=== PATIENT | female | born 1950 | race Caucasian/White ===

== ENCOUNTER → 2016-07-28 | Outpatient (CLI) | payer BC ==
[2016-07-28 08:14] LABS: Basophils # (A) 0.1 k/uL (0-0.2); Basophils % (A) 2 %; CH 28.6; CHCM 31.6; Eosinophils # (A) 0.1 k/uL (0-0.7); Eosinophils % (A) 2 %; HCT 44.2 % (34.0-46.0); HDW 2.25; Luc # (Auto) 0.13; Luc % (Auto) 2; Lymphocytes # (A) 1.5 k/uL (1.0-4.8); Lymphocytes % (A) 25 %; MCH 28.9 pg (25.0-35.0); MCHC 31.7 g/dL (31.0-37.0); Mean Platelet Volume 8.2; Monocytes # (A) 0.2 k/uL (0-1.0); Monocytes % (A) 4 %; Neutrophils # (A) 4.1 k/uL (1.3-7.7); Neutrophils % (A) 66 %; RBC 4.86 m/uL (3.80-5.40); RDW 13.8 % (11.5-15.5); WBC 6.3 k/uL (3.8-10.6); WBC (Perox) 6.56
[2016-07-28 08:16] LABS: Appearance,Urine Clear (Clear); Bilirubin,Urine Negative (Negative); Glucose,Urine (UA) Negative (Negative); Ketones,Urine Negative (Negative); Leukocyte Esterase,Urine Negative (Negative); Nitrite,Urine Negative (Negative); PH, Urine 6.5 (5.0-8.0); Protein,Urine Negative (Negative); Specific Gravity,Urine 1.016 (1.001-1.035); UA Billing (MACRO vs. MICRO) CHEM; Urobilinogen,Urine <2.0 mg/dL (<2.0)
[2016-07-28 11:17] LABS: Hemoglobin A1C 5.8 % (4.2-6.1)
[2016-07-28 11:43] LABS: ALT 34 U/L (9-52); AST 21 U/L (14-36); Alkaline Phosphatase 61 U/L (38-126); Anion Gap 8 mmol/L; Blood Urea Nitrogen 26 mg/dL (7-17); Calcium 9.3 mg/dL (8.4-10.2); Carbon Dioxide 28 mmol/L (22-30); Chloride 107 mmol/L (98-107); Cholesterol 161 mg/dL (<200); Creatine Kinase 43 U/L (30-135); Glucose 95 mg/dL (74-99); HDL Cholesterol 64 mg/dL (40-60); Iron 68 ug/dL (37-170); Non-African American GFR(MDRD) >60 (>60 ml/min/1.73 sqM); Sodium 143 mmol/L (137-145); Total Bilirubin 0.3 mg/dL (0.2-1.3); Total Protein 6.4 g/dL (6.3-8.2); Triglycerides 50 mg/dL (<150); Uric Acid 4.1 mg/dL (3.7-7.4)
[2016-07-28 11:53] LABS: % Iron Saturation 24.5 % (20-50); Total Iron Binding Capacity 278 ug/dL (265-497)
== END | disposition home or self-care (01) ==
LOC: LABWHC1 07:27
PROVIDERS: ATTEND Internal Medicine
DX: E55.9 Vitamin D deficiency, unspecified (principal); K21.0 Gastro-esophageal reflux disease with esophagitis; M47.812 Spondylosis without myelopathy or radiculopathy, cervical region; H04.123 Dry eye syndrome of bilateral lacrimal glands; G43.809 Other migraine, not intractable, without status migrainosus
CPT/HCPCS: 36415; 80053; 80061; 81003; 82306; 82550; 82728; 83036; 83540; 83550; 84443; 84550; 85025

== ENCOUNTER → 2017-02-07 | Outpatient (CLI) | payer BC ==
--- NOTE | 2017-02-07 17:42 | BD ---
EXAMINATION TYPE: MG DEXA axial skeleton. DATE OF EXAM: 02/07/2017 COMPARISON: 02.01.2015 CLINICAL HISTORY: 66-year-old female....ISD-10 CODE: M85.9 DISORDER OF BONE Height: 62 Weight: 214 FRAX RISK QUESTIONS: Alcohol (3 or more units per day): NO Family History (Parent hip fracture): NO FX Glucocorticoids (More than 3mos): NO (Ex: prednisone, prednisolone, methylprednisolone, dexamethasone, and hydrocortisone). History of Fracture in Adulthood: YES Secondary Osteoporosis: NO 1. Type 1 Diabetes: NO 2. Hyperthyroidism: NO 3. Menopause before 45: NO 4. Malnutrition: NO 5. Chronic liver disease: NO Rheumatoid Arthritis: NO Current Tobacco Use: NO RISK FACTORS HISTORY OF: RT FOOT > 50 YRS OLD Family History of Osteoporosis: YES, HER SISTER Active: YES Diet low in dairy products/other sources of calcium: NO Postmenopausal woman: HYST. AT AGE 48 Take estrogen and/or progesterone medications: YES, VAG. CREAM 3XWEEKLY How long: SINCE AGE 48 Lost more than 2 inches in height since high school: 2 INCHES EXACTLY Hyperparathyroidism: NO Adrenal Insufficiency: NO MEDICATIONS: Additional Medications: CALCIUM AND VIT D, REFLUX MEDS, Additional History: NONE TO NOTE EXAM MEASUREMENTS: Bone mineral densitometry was performed using the [employer] System. Bone mineral density as measured about the Lumbar spine is: ----- L1-L4(G/cm2): 1.156 T Score Values are as follows: ----- L1: -0.9 ----- L2: 0.1 ----- L3: 0.2 ----- L4: -0.5 ----- L1-L4: -0.2 Bone mineral density has: Decreased -1.2% since study of: 02.01.2015 Bone mineral density about the R hip (g/cm2): 1.000 Bone mineral density about the L hip (g/cm2): 0.994 T Score values are as follows: -----R Neck: -0.3 -----L Neck: -0.4 -----R Total: -0.1 -----L Total: -0.1 Bone mineral density has: Increased 0.1% since study of: 02.01.2015 FRAX%'S: THERE IS A 10.5% CHANCE FOR A MAJOR OSTEOPOROTIC FX AND A 0.4% OF HIP FX....PROBABILITY O F FX IN 10 YRS TIME IMPRESSION: Normal (Values between +1 and -1 indicate normal bone mass). Consider repeating this study in 5 year s or sooner if there is some new clinical indication. NOTE: T-SCORE=SD OF THE YOUNG ADULT MEAN.
--- NOTE | 2017-02-08 11:37 | MM ---
Reason for exam: screening (asymptomatic). Last mammogram was performed 11 months ago. History: Patient is postmenopausal. Family history of breast cancer in maternal aunt, breast cancer in maternal cousin at age 40, and breast cancer in mother at age 60. Benign excisional biopsy of the left breast, 1989. Taking estrogen for 16 years beginning at age 47. Physical Findings: A clinical breast exam by your physician is recommended on an annual basis and results should be correlated with mammographic findings. MG Screening Mammo w CAD Bilateral CC and MLO view(s) were taken. Prior study comparison: March 09, 2016, bilateral MG screening mammo w CAD. February 01, 2015, bilateral MG screening mammo w CAD. The breast tissue is heterogeneously dense. This may lower the sensitivity of mammography. Waxing and waning cysts. No significant changes when compared with prior studies. ASSESSMENT: Benign, BI-RAD 2 RECOMMENDATION: Routine screening mammogram of both breasts in 1 year.
== END | disposition home or self-care (01) ==
LOC: RADMAMWWP 14:50
PROVIDERS: ATTEND Internal Medicine
DX: Z12.31 Encounter for screening mammogram for malignant neoplasm of breast (principal); M85.9 Disorder of bone density and structure, unspecified
CPT/HCPCS: 77080; G0202

== ENCOUNTER → 2018-04-01 | Outpatient (CLI) | payer OTHER ==
--- NOTE | 2018-04-05 09:41 | MM ---
Reason for exam: screening (asymptomatic). Last mammogram was performed 1 year and 2 months ago. History: Patient is postmenopausal. Family history of breast cancer in mother at age 60, breast cancer in cousin at age 40, and breast cancer in aunt. Benign excisional biopsy of the left breast, 1989. Taking estrogen for 16 years beginning at age 47. MG Screening Mammo w CAD Bilateral CC and MLO view(s) were taken. Prior study comparison: February 07, 2017, bilateral MG screening mammo w CAD. March 09, 2016, bilateral MG screening mammo w CAD. The breast tissue is heterogeneously dense. This may lower the sensitivity of mammography. Chronic nodularity bilaterally. No significant changes when compared with prior studies. ASSESSMENT: Benign, BI-RAD 2 RECOMMENDATION: Routine screening mammogram of both breasts in 1 year.
== END ==
LOC: RADMAMWWP 16:32
PROVIDERS: ATTEND Internal Medicine
DX: Z12.31 Encounter for screening mammogram for malignant neoplasm of breast (principal)
CPT/HCPCS: 77067

== ENCOUNTER → 2019-07-27 | Outpatient (CLI) | payer MEDICARE, BC ==
--- NOTE | 2019-07-27 08:15 | US ---
EXAMINATION TYPE: US abdomen complete DATE OF EXAM: 07/27/2019 COMPARISON: NONE CLINICAL HISTORY: R10.9 Abdominal Pain. RLQ pain. EXAM MEASUREMENTS: Liver Length: 13.2 cm Gallbladder Wall: Surgically absent cm CBD: .6 cm Spleen: 8.3 cm Right Kidney: 10.3 x 4.6 x 3.8 cm Left Kidney: 10.5 x 4.5 x 4.7 cm Pancreas: wnl Liver: wnl Gallbladder: Surgically absent Evidence for sonographic Jerome's sign: No CBD: wnl Spleen: wnl Right Kidney: wnl Left Kidney: wnl Upper IVC: wnl Abd Aorta: wnl The liver is homogenous. The intrahepatic portion of the IVC and proximal abdominal aorta are within normal limits. Common bile duct is unremarkable. The visualized portions of the pancreas are homog enous. The spleen is unremarkable. Kidneys are symmetric and free of hydronephrosis. No renal lesi ons are seen. IMPRESSION: No distinct abnormality appreciated at this time.
== END | disposition home or self-care (01) ==
LOC: RADUSWWP 07:24
PROVIDERS: ATTEND Internal Medicine Geriatric Medicine
DX: R10.9 Unspecified abdominal pain (principal)
CPT/HCPCS: 76700

== ENCOUNTER → 2019-08-06 | Outpatient (CLI) | payer MEDICARE, BC ==
--- NOTE | 2019-08-11 08:52 | MM ---
Reason for exam: screening (asymptomatic). Last mammogram was performed 1 year and 4 months ago. History: Patient is postmenopausal. Family history of breast cancer in mother at age 60, breast cancer in cousin at age 40, breast cancer in sister at age 65, and breast cancer in aunt. Benign excisional biopsy of the left breast, 1989. Taking estrogen for 16 years beginning at age 47. Physical Findings: A clinical breast exam by your physician is recommended on an annual basis and results should be correlated with mammographic findings. MG 3D Screening Mammo W/Cad Bilateral CC and MLO view(s) were taken. Prior study comparison: April 01, 2018, bilateral MG screening mammo w CAD. February 07, 2017, bilateral MG screening mammo w CAD. The breast tissue is heterogeneously dense. This may lower the sensitivity of mammography. There is chronic nodularity bilaterally. No significant changes when compared with prior studies. ASSESSMENT: Benign, BI-RAD 2 RECOMMENDATION: Routine screening mammogram of both breasts in 1 year.
== END | disposition home or self-care (01) ==
LOC: RADMAMWWP 12:23
PROVIDERS: ATTEND Internal Medicine Geriatric Medicine
DX: Z12.31 Encounter for screening mammogram for malignant neoplasm of breast (principal)
CPT/HCPCS: 77063; 77067

== ENCOUNTER → 2019-08-06 | Outpatient (CLI) | payer MEDICARE, BC | END | disposition home or self-care (01) | LOC: LABWHC1 12:50 | PROVIDERS: ATTEND Ophthalmology | DX: M31.6 Other giant cell arteritis (principal) | CPT/HCPCS: 36415; 85652; 86140 ==

== ENCOUNTER → 2020-08-24 | Outpatient (CLI) | payer MEDICARE ==
--- NOTE | 2020-08-26 11:05 | MM ---
Reason for exam: screening (asymptomatic). Last mammogram was performed 1 year and 1 month ago. History: Patient is postmenopausal. Family history of breast cancer in mother at age 60, breast cancer in cousin at age 40, breast cancer in sister at age 65, and breast cancer in aunt. Benign excisional biopsy of the left breast, 1989. Taking estrogen for 16 years beginning at age 47. Physical Findings: A clinical breast exam by your physician is recommended on an annual basis and results should be correlated with mammographic findings. MG 3D Screening Mammo W/Cad Bilateral CC and MLO view(s) were taken. Prior study comparison: August 06, 2019, bilateral MG 3d screening mammo w/cad. April 01, 2018, bilateral MG screening mammo w CAD. The breast tissue is heterogeneously dense. This may lower the sensitivity of mammography. ASSESSMENT: Negative, BI-RAD 1 RECOMMENDATION: Routine screening mammogram of both breasts in 1 year.
== END | disposition home or self-care (01) ==
LOC: RADMAMWWP 07:51
PROVIDERS: ATTEND Internal Medicine Geriatric Medicine
DX: Z12.31 Encounter for screening mammogram for malignant neoplasm of breast (principal); Z78.0 Asymptomatic menopausal state; Z80.3 Family history of malignant neoplasm of breast
CPT/HCPCS: 77063; 77067

== ENCOUNTER → 2022-03-27 | Outpatient (CLI) | payer MEDICARE ==
--- NOTE | 2022-03-27 15:58 | BD ---
EXAMINATION TYPE: Axial Bone Density DATE OF EXAM: 03/27/2022 COMPARISON: 2016 CLINICAL HISTORY: 71 years year old Female. ICD-10 CODE: M81.0 age related osteopor Height: 5'2 1/2 Weight: 222 FRAX RISK QUESTIONS: Secondary Osteoporosis: RISK FACTORS HISTORY OF: Postmenopausal woman: y Lost more than 2 inches in height since high school: y MEDICATIONS: Additional Medications: gerd, 5 days steroid Additional History: EXAM MEASUREMENTS: Bone mineral densitometry was performed using the [employer] System. Bone mineral density as measured about the Lumbar spine is: ----- L1-L4(G/cm2): 1.142 T Score Values are as follows: ----- L1: -0.9 ----- L2: -0.1 ----- L3: 0.2 ----- L4: -0.6 ----- L1-L4: -0.3 Bone mineral density has: Decreased -0.7% since study of: 02/07/2017 Bone mineral density about the R hip (g/cm2): 1.067 Bone mineral density about the L hip (g/cm2): 1.031 T Score values are as follows: -----R Neck: 0.2 -----L Neck: -0.1 -----R Total: 0.3 -----L Total: 0.3 Bone mineral density has: Increased 5.3% since study of: 02/07/2017 FRAX%s: The graph provided illustrates a 10.2% chance for a major osteoporotic fx and a 0.4% chance f or the hips probability for fx in 10 years time. IMPRESSION: Normal (Values between +1 and -1 indicate normal bone mass). Consider repeating this study in 5 year s or sooner if there is some new clinical indication. NOTE: T-SCORE=SD OF THE YOUNG ADULT MEAN.
--- NOTE | 2022-03-28 21:38 | MM ---
Reason for Exam: Screening (asymptomatic). Last mammogram was performed 1 year(s) and 7 month(s) ago. Patient History: Menarche at age 14. First Full-Term at age 27. Left ovary removed at age 47. Right ovary removed at age 47. Hysterectomy at age 47. Postmenopausal. Patient has history of breast feeding. Currently using Estrogen, beginning at age 47 for 16 years. 1989, Benign Excisional Biopsy on the left side. Maternal cousin had breast cancer, age 40. Maternal aunt had breast cancer. Sister had breast cancer, age 65. Mother had breast cancer, age 60. Risk Values: Mily 5 year model risk: 7.0%. NCI Lifetime model risk: 20.1%. Prior Study Comparison: 04/01/2018 Bilateral Screening Mammogram, [facility]. 08/06/2019 Bilateral Screening Mammogram, [facility]. 08/24/2020 Bilateral Screening Mammogram, [facility]. Tissue Density: The breast tissue is heterogeneously dense. This may lower the sensitivity of mammography. Findings: Analyzed By CAD. Both areas obscured distortion throughout the left cc view at a middle depth. However, the appearance on the MLO view is similar. Possible superimposition shadow but further evaluation is recommended. Chronic nodularity on the right. Overall Assessment: Incomplete: need additional imaging evaluation, BI-RAD 0 Management: Special View Mammogram of the left breast. Diagnostic Breast Ultrasound of the left breast. Additional views including spot 3-D CC, 3-D CC rolled medial, 3-D CC rolled lateral, and 3-D lateral views. Whole left breast ultrasound. Note the patient's high five-year risk and elevated lifetime risk. Patient may qualify for screening MRI. [facility] will attempt to contact patient to return for supplemental views and ultrasound if indicated. Electronically signed and approved by: Sujit Bain M.D. Radiologist
== END | disposition home or self-care (01) ==
LOC: RADMAMWWP 12:44
PROVIDERS: ATTEND Internal Medicine Geriatric Medicine
DX: Z12.31 Encounter for screening mammogram for malignant neoplasm of breast (principal); M81.0 Age-related osteoporosis without current pathological fracture; Z78.0 Asymptomatic menopausal state; Z80.3 Family history of malignant neoplasm of breast
CPT/HCPCS: 77063; 77067; 77080

== ENCOUNTER → 2022-03-30 | Outpatient (CLI) | payer MEDICARE ==
--- NOTE | 2022-03-30 08:04 | MM ---
Reason for Exam: Additional evaluation requested from abnormal screening. Last screening mammogram was performed less than 1 month ago. Patient History: Menarche at age 14. First Full-Term at age 27. Left ovary removed at age 47. Right ovary removed at age 47. Hysterectomy at age 47. Postmenopausal. Patient has history of breast feeding. Currently using Estrogen, beginning at age 47 for 16 years. 1989, Benign Excisional Biopsy on the left side. Maternal cousin had breast cancer, age 40. Maternal aunt had breast cancer. Sister had breast cancer, age 65. Mother had breast cancer, age 60. Risk Values: Mily 5 year model risk: 7.0%. NCI Lifetime model risk: 20.1%. Prior Study Comparison: 08/06/2019 Bilateral Screening Mammogram, [facility]. 08/24/2020 Bilateral Screening Mammogram, [facility]. 03/27/2022 Bilateral MG 3D screening mammo w/cad, [facility]. Tissue Density: Left: The breast tissue is heterogeneously dense. This may lower the sensitivity of mammography. Findings: Analyzed By CAD. The 2 asymmetries demonstrated within the lateral and central left breast at middle depth become less apparent with compression. There is a persistent mass demonstrated within the inner left breast at middle depth measuring 5 mm. Additional suggestive mass within the lateral left breast measuring 6 mm middle depth. No suspicious calcifications. Overall Assessment: Incomplete: need additional imaging evaluation, BI-RAD 0 Management: Diagnostic Breast Ultrasound of the left breast. A clinical breast exam by your physician is recommended on an annual basis and results should be correlated with mammographic findings. This exam should not preclude additional follow-up of suspicious palpable abnormalities. Results were given to the patient verbally at the time of exam. Electronically signed and approved by: Sloan Ortiz D.O.
--- NOTE | 2022-03-30 08:32 | USB ---
Reason for Exam: Additional evaluation requested from abnormal screening. Patient History: Menarche at age 14. First Full-Term at age 27. Left ovary removed at age 47. Right ovary removed at age 47. Hysterectomy at age 47. Postmenopausal. Patient has history of breast feeding. Currently using Estrogen, beginning at age 47 for 16 years. 1989, Benign Excisional Biopsy on the left side. Maternal cousin had breast cancer, age 40. Maternal aunt had breast cancer. Sister had breast cancer, age 65. Mother had breast cancer, age 60. Risk Values: Mily 5 year model risk: 7.0%. NCI Lifetime model risk: 20.1%. Prior Study Comparison: 08/06/2019 Bilateral Screening Mammogram, [facility]. 08/24/2020 Bilateral Screening Mammogram, [facility]. 03/27/2022 Bilateral MG 3D screening mammo w/cad, [facility]. Findings: The whole breast of the left breast, the axilla of the left breast and the retroareolar of the left breast were scanned. A complete US of all four quadrants of the left breast and retro-areolar region were reviewed. Several simple cysts are demonstrated within the left breast with example including at 12:00 5 cm from the nipple measuring 4 x 3 x 5 mm. Another example a 8:00 2 cm from the nipple measuring 5 x 3 x 5 mm. No solid mass is identified. Overall Assessment: Benign, BI-RAD 2 Management: Screening Mammogram of both breasts in 1 year. A clinical breast exam by your physician is recommended on an annual basis and results should be correlated with mammographic findings. This exam should not preclude additional follow-up of suspicious palpable abnormalities. Results were given to the patient verbally at the time of exam. Electronically signed and approved by: Sloan Ortiz D.O.
== END | disposition home or self-care (01) ==
LOC: RADMAMWWP 07:27
PROVIDERS: ATTEND Internal Medicine Geriatric Medicine
DX: R92.8 Other abnormal and inconclusive findings on diagnostic imaging of breast (principal); Z78.0 Asymptomatic menopausal state; Z80.3 Family history of malignant neoplasm of breast
CPT/HCPCS: 77065; 76641; G0279; 77061

== ENCOUNTER → 2022-07-04 | Outpatient (CLI) | payer MEDICARE ==
--- NOTE | 2022-07-05 09:53 | MR ---
EXAMINATION TYPE: MR brain and iac wo/w con DATE OF EXAM: 07/04/2022 COMPARISON: Outside [facility] CT 11/11/2020 and MRI 12/02/2020 HISTORY: 71-year-old female H93.3X9, H93.19, H91.90, H90.5 HEARING LOSS. Left ear ringing, head pain and right ear pain. TECHNIQUE: Multiplanar, multisequence images of the brain and brainstem were acquired before and aft er administration of 10 ml IV Gadavist. Diffusion weighted imaging was performed. Additional coned- down sequences through the internal auditory canals and posterior cranial fossa before and after IV c ontrast administration. FINDINGS: Diffusion weighted images demonstrate no evidence of an acute ischemic lesion in the brain. T2/FLAIR weighted sequences show scattered trace burden of subcortical bright signal foci, less than 5 on either side. Either prominent perivascular space or old lacunar infarct left basal ganglia. Midline structures demonstrate normal morphology. The craniocervical junction is normal. There is mild age-related cerebral cortical volume loss. The ventricles are of normal caliber. There is no evidence of an acute intracranial hemorrhage, infarct, mass, mass-effect or an extra-axia l fluid collection. There is no cerebellopontine angle mass. The internal auditory canals are symmetric. Brainstem and skull base abnormalities are not seen. Post contrast images demonstrate no evidence of pathologic enhancement in the posterior cranial fossa or the internal auditory canals. There is no abnormal enhancement of the labyrinths. There is mild mucosal thickening within the ethmoid air cells. Slight rightward nasal septal deviatio n. Globes are intact IMPRESSION: 1. No acute intracranial abnormality seen. Trace burden of chronic small vessel ischemic disease. No enhancing intracranial lesions. 2. No specific abnormality on acoustic MRI. 3. Mild chronic ethmoid sinus disease.
== END | disposition home or self-care (01) ==
LOC: RADMRIMAIN 14:06
PROVIDERS: ATTEND Otolaryngology
DX: H93.12 Tinnitus, left ear (principal); H93.3X2 Disorders of left acoustic nerve; H91.92 Unspecified hearing loss, left ear; J32.2 Chronic ethmoidal sinusitis; I67.82 Cerebral ischemia
CPT/HCPCS: 70553; A9585

== ENCOUNTER → 2022-11-28 | Outpatient (CLI) | payer MEDICARE ==
[2022-11-29 04:31] LABS: Clam IgE <0.10 kU/L; Codfish IgE <0.10 kU/L; Egg White IgE <0.10 kU/L; Peanut IgE <0.10 kU/L; Scallop IgE <0.10 kU/L; Shrimp IgE <0.10 kU/L; Soybean IgE <0.10 kU/L; Walnut IgE (Food) <0.10 kU/L
[2022-11-29 10:56] LABS: Crab IgE <0.10 kU/L (<0.10); Crab IgE Class CLASS 0; Lettuce IgE Class CLASS 0
[2022-11-29 10:57] LABS: Pork IgE Class CLASS 0
[2022-11-29 10:58] LABS: Apple IgE Class CLASS 0; Beef IgE <0.10 kU/L (<0.10); Beef IgE Class CLASS 0; Onion IgE <0.10 kU/L (<0.10); Onion IgE Class CLASS 0; Potato IgE <0.10 kU/L (<0.10); Potato IgE Class CLASS 0; Salmon IgE <0.10 kU/L (<0.10); Salmon IgE Class CLASS 0; Yeast Bakers/Brew IgE <0.10 kU/L (<0.10); Yeast Bakers/Brew IgE Class CLASS 0
[2022-11-29 10:59] LABS: Celery IgE <0.10 kU/L (<0.10); Celery IgE Class CLASS 0; Chicken IgE Class CLASS 0; Egg Yolk IgE Class CLASS 0; Gluten IgE Class CLASS 0; Lobster IgE <0.10 kU/L (<0.10); Lobster IgE Class CLASS 0; Oat IgE Class CLASS 0
[2022-11-29 11:00] LABS: Banana IgE Class CLASS 0; Chocolate IgE Class CLASS 0; Coffee IgE <0.10 kU/L (<0.10); Coffee IgE Class CLASS 0; Latex IgE Class CLASS 0; Tea IgE <0.10 kU/L (<0.10); Tea IgE Class CLASS 0
== END | disposition home or self-care (01) ==
LOC: LABWHC1 11:47
PROVIDERS: ATTEND Otolaryngology
DX: J30.89 Other allergic rhinitis (principal)
CPT/HCPCS: 36415; 82785; 86003

== ENCOUNTER → 2023-06-19 | Outpatient (CLI) | payer MEDICARE ==
--- NOTE | 2023-06-20 09:13 | MM ---
Reason for Exam: Screening (asymptomatic). Last mammogram was performed 1 year(s) and 3 month(s) ago. Patient History: Menarche at age 14. First Full-Term at age 27. Left ovary removed at age 47. Right ovary removed at age 47. Hysterectomy at age 47. Postmenopausal. Patient has history of breast feeding. Previous chemotherapy. Currently using Estrogen, beginning at age 47 for 16 years. 1989, Benign Excisional Biopsy on the left side. Maternal cousin had breast cancer, age 40. Maternal aunt had breast cancer. Sister had breast cancer, age 65. Mother had breast cancer, age 60. Risk Values: Mily 5 year model risk: 7.0%. Prior Study Comparison: 08/24/2020 Bilateral Screening Mammogram, [facility]. 03/27/2022 Bilateral MG 3D screening mammo w/cad, [facility]. 03/30/2022 Left MG 3D work up w/cad , [facility]. Tissue Density: The breasts are heterogeneously dense, which may obscure small masses. Findings: Analyzed By CAD. There is no suspicious group of microcalcifications or new suspicious mass in either breast. Stable chronic nodularity right breast unchanged from multiple prior exams. Benign-appearing calcifications. Within the posterior central right breast seen on the MLO view there is a oval 1 cm nodular appearing density with obscured margins. Recommend spot compression of both the areas of interest. Overall Assessment: Incomplete: need additional imaging evaluation, BI-RAD 0 Management: Diagnostic Mammogram of both breasts. . Patient should continue monthly self-breast exams. A clinical breast exam by your physician is recommended on an annual basis. This exam should not preclude additional follow-up of suspicious palpable abnormalities. Note on Mily scores and lifetime risk: 1. A Mily score greater than 3% is considered moderate risk. If this is the case, consider specialist referral to assess eligibility for a risk reducing agent. 2. If overall lifetime risk for the development of breast cancer is 20% or higher, the patient may qualify for future screening with alternating mammogram and breast MRI. Electronically signed and approved by: Antolin Carlson M.D. Radiologis
== END | disposition home or self-care (01) ==
LOC: RADMAMWWP 12:36
PROVIDERS: ATTEND Internal Medicine Geriatric Medicine
DX: Z12.31 Encounter for screening mammogram for malignant neoplasm of breast (principal); Z78.0 Asymptomatic menopausal state; Z80.3 Family history of malignant neoplasm of breast
CPT/HCPCS: 77063; 77067

== ENCOUNTER → 2023-06-21 | Outpatient (CLI) | payer MEDICARE ==
--- NOTE | 2023-06-21 11:24 | MM ---
Reason for Exam: Additional evaluation requested from abnormal screening. Last screening mammogram was performed less than 1 month ago. Patient History: Menarche at age 14. First Full-Term at age 27. Left ovary removed at age 47. Right ovary removed at age 47. Hysterectomy at age 47. Postmenopausal. Patient has history of breast feeding. Currently using Estrogen, beginning at age 47 for 16 years. 1990, Benign Excisional Biopsy on the left side. Maternal cousin had breast cancer, age 40. Maternal aunt had breast cancer. Sister had breast cancer, age 65. Mother had breast cancer, age 60. Risk Values: Mily 5 year model risk: 7.0%. NCI Lifetime model risk: 19.2%. Prior Study Comparison: 02/20/2013 Right Diagnostic Mammogram, [facility]. 02/20/2013 Right Diagnostic Ultrasound, [facility]. 10/26/2013 Bilateral Diagnostic Mammogram, [facility]. 10/26/2013 Right Diagnostic Ultrasound, [facility]. 02/01/2015 Bilateral Screening Mammogram, [facility]. 03/09/2016 Bilateral Screening Mammogram, [facility]. 02/07/2017 Bilateral Screening Mammogram, [facility]. 04/01/2018 Bilateral Screening Mammogram, [facility]. 08/06/2019 Bilateral Screening Mammogram, [facility]. 08/24/2020 Bilateral Screening Mammogram, [facility]. 03/27/2022 Bilateral MG 3D screening mammo w/cad, [facility]. 03/30/2022 Left MG 3D work up w/cad LT, [facility]. 03/30/2022 Left US breast workup LT, [facility]. 06/19/2023 Bilateral MG 3D screening mammo w/cad, [facility]. Tissue Density: The breasts are heterogeneously dense, which may obscure small masses. Findings: Analyzed By CAD. There is chronic nodularity seen bilaterally. With regards to the right breast the asymmetric density far posteriorly does not persist with certainty. Six-month follow-up is recommended. With regards to the left breast there is nodularity at the approximate 11:00 position 6 cm from the nipple measuring 7 to 8 mm. Ultrasound is advised. Overall Assessment: Incomplete: need additional imaging evaluation, BI-RAD 0 Management: Diagnostic Breast Ultrasound of the left breast. . Results were given to the patient verbally at the time of exam. Patient should continue monthly self-breast exams. A clinical breast exam by your physician is recommended on an annual basis. This exam should not preclude additional follow-up of suspicious palpable abnormalities. Note on Mily scores and lifetime risk: 1. A Mily score greater than 3% is considered moderate risk. If this is the case, consider specialist referral to assess eligibility for a risk reducing agent. 2. If overall lifetime risk for the development of breast cancer is 20% or higher, the patient may qualify for future screening with alternating mammogram and breast MRI. Electronically signed and approved by: Jaime Ching M.D. Radiologis
--- NOTE | 2023-06-21 11:47 | USB ---
Reason for Exam: Additional evaluation requested from abnormal screening. Patient History: Menarche at age 14. First Full-Term at age 27. Left ovary removed at age 47. Right ovary removed at age 47. Hysterectomy at age 47. Postmenopausal. Patient has history of breast feeding. Currently using Estrogen, beginning at age 47 for 16 years. 1989, Benign Excisional Biopsy on the left side. Maternal cousin had breast cancer, age 40. Maternal aunt had breast cancer. Sister had breast cancer, age 65. Mother had breast cancer, age 60. Risk Values: Mily 5 year model risk: 7.0%. NCI Lifetime model risk: 19.2%. Technique: Method: Targeted. Prior Study Comparison: 03/27/2022 Bilateral MG 3D screening mammo w/cad, [facility]. 03/30/2022 Left MG 3D work up w/cad , [facility]. 06/19/2023 Bilateral MG 3D screening mammo w/cad, [facility]. Findings: The upper inner quadrant of the left breast, the axilla of the left breast and the retroareolar of the left breast were scanned. Cystic changes left breast at the 10:00 position 6 cm from the nipple measuring 6 x 4 mm. Additional complex cystic area at the left 10:00 position 4 cm from the nipple measuring 7 x 3 mm. No solid masses seen. Impression a six-month follow-up is recommended. Overall Assessment: Probably benign, BI-RAD 3 Management: Diagnostic Breast Ultrasound of the left breast in 6 months. A clinical breast exam by your physician is recommended on an annual basis and results should be correlated with mammographic findings. This exam should not preclude additional follow-up of suspicious palpable abnormalities. Results were given to the patient verbally at the time of exam. Electronically signed and approved by: Jaime Ching M.D. Radiologis
== END | disposition home or self-care (01) ==
LOC: RADMAMWWP 10:33
PROVIDERS: ATTEND Internal Medicine Geriatric Medicine
DX: R92.8 Other abnormal and inconclusive findings on diagnostic imaging of breast (principal); Z78.0 Asymptomatic menopausal state; Z80.3 Family history of malignant neoplasm of breast
CPT/HCPCS: 77066; 76642; G0279; 77062

== ENCOUNTER → 2024-01-24 | Outpatient (CLI) | payer MEDICARE ==
--- NOTE | 2024-01-24 13:54 | USB ---
Reason for Exam: Follow-up at short interval from prior study. Patient History: Menarche at age 14. First Full-Term at age 27. Left ovary removed at age 47. Right ovary removed at age 47. Hysterectomy at age 47. Postmenopausal. Patient has history of breast feeding. Currently using Estrogen, beginning at age 47 for 16 years. 1989, Benign Excisional Biopsy on the left side. Maternal cousin had breast cancer, age 40. Maternal aunt had breast cancer. Sister had breast cancer, age 65. Mother had breast cancer, age 60. Risk Values: Mily 5 year model risk: 7.1%. NCI Lifetime model risk: 18.4%. Technique: Method: Targeted. Prior Study Comparison: 03/30/2022 Left MG 3D work up w/cad LT, [facility]. 06/19/2023 Bilateral MG 3D screening mammo w/cad, [facility]. 06/21/2023 Bilateral MG 3D work up w/cad ALEJANDRA, [facility]. Findings: The upper section of the breast of the left breast, the axilla of the left breast and the retroareolar of the left breast were scanned. Multiple cystlike structures are scattered within the breast. This includes 10:00 position 4 cm from the nipple measuring 0.6 x 0.3 x 0.8 cm with good through transmission and posterior wall enhancement. Additional areas are smaller than the comparison study. Overall Assessment: Benign, BI-RAD 2 Management: Screening Mammogram of both breasts in 6 months. A clinical breast exam by your physician is recommended on an annual basis and results should be correlated with mammographic findings. This exam should not preclude additional follow-up of suspicious palpable abnormalities. Results were given to the patient verbally at the time of exam. [facility], , 01/24/2024 1:32 PM. Electronically signed and approved by: Bernardo Landon D.O. Radiologis
== END | disposition home or self-care (01) ==
LOC: RADUSWWP 12:54
PROVIDERS: ATTEND Internal Medicine Geriatric Medicine
DX: R92.8 Other abnormal and inconclusive findings on diagnostic imaging of breast (principal); Z78.0 Asymptomatic menopausal state; Z80.3 Family history of malignant neoplasm of breast; Z90.722 Acquired absence of ovaries, bilateral